=== PATIENT | female | born 1970 | race Caucasian/White ===

== ENCOUNTER 2017-03-01 13:40 | Emergency (ER) | payer OTHER ==
[~2017-03-01] VITALS: Ht 162.6 cm; Wt 94.3 kg
[2017-03-01 14:10] VITALS: BP 153/86
[2017-03-01] MEDS ORDERED: ZYRTEC5 MG PO (14:58)
== END 2017-03-01 15:44 | disposition home or self-care (01) ==
LOC: EME 13:40
DX: S90.31XA Contusion of right foot, initial encounter (principal); W20.8XXA Other cause of strike by thrown, projected or falling object, initial encounter
CPT/HCPCS: 73630; 99281; 99283